=== PATIENT | male | born 1995 | race Caucasian/White ===

== ENCOUNTER 2017-04-29 10:56 | Emergency (ER) | payer SELFPAY ==
[~2017-04-29] VITALS: Ht 161.3 cm; Wt 57.3 kg
[2017-04-29 11:18] VITALS: BP 119/97
--- NOTE | 2017-04-29 13:07 | NUR ---
Patient ambulated to bed 8. PEDIATRIC DIETICIAN evaluating patient at bedside.
[2017-04-29 13:43] VITALS: BP 132/71
--- NOTE | 2017-04-29 13:44 | NUR ---
Patient discharged with v/s stable. Written and verbal after care instructions given and explained. Patient alert, oriented and verbalized understanding of instructions. Ambulatory with steady gait. All questions addressed prior to discharge. ID band removed. Patient advised to follow up with PMD. Rx of MOTRIN 400MG 1 TAB PO QID given. Patient educated on indication of medication including possible reaction and side effects. Opportunity to ask questions provided and answered.
== END 2017-04-29 13:44 | disposition home or self-care (01) ==
LOC: MED 10:56
DX: S80.01XA Contusion of right knee, initial encounter (principal); V89.2XXA Person injured in unspecified motor-vehicle accident, traffic, initial encounter; Y93.I9 Activity, other involving external motion; Y92.488 Other paved roadways as the place of occurrence of the external cause; Y99.8 Other external cause status
CPT/HCPCS: 73562; 99284